=== PATIENT | female | born 1985 | race Asian ===

== ENCOUNTER 2025-02-10 10:17 | Outpatient (CLI) | payer BC | END 2025-02-10 10:18 | disposition home or self-care (01) | LOC: CSHULT 10:17 | PROVIDERS: ATTEND Internal Medicine | DX: E04.9 Nontoxic goiter, unspecified (principal); E03.9 Hypothyroidism, unspecified; E07.9 Disorder of thyroid, unspecified | CPT/HCPCS: 76536 ==